=== PATIENT | female | born 1955 | race Two or more races ===

== ENCOUNTER 2016-08-31 10:22 | Day surgery (SDC) | payer OTHER ==
[2016-08-31] VITALS (8 sets, daily range): BP systolic 97–142; BP diastolic 56–77; PULSE 54–72; RESP 14–18; Ht 172.7 cm; Wt 71.7 kg
[~2016-08-31] VITALS: Ht 172.7 cm; Wt 71.7 kg
[~2016-08-31 10:22] MED LIST: CEFAZOLIN 2 GM/50 ML (PMX) 50 ML IVPB SCH; SEVOFLURANE 15 MIN ONE; SOD CHLORIDE 0.9% 1,000 ML IV SCH
[2016-08-31] MEDS ORDERED: FENTAnyl 50 MCG/ML VIAL ONE (11:59)
[2016-08-31] MEDS ORDERED: ROCURONIUM 50 MG INJ ONE (11:59)
[2016-08-31] MEDS ORDERED: PROPOFOL 20 ML ONE (11:59)
[2016-08-31] MEDS ORDERED: MIDAZOLAM 1 MG/ML 2 ML INJ ONE (11:59)
[2016-08-31] MEDS ORDERED: BUPIVACAINE 0.25% (MPF) 30 ML INJ ONE (12:28)
[2016-08-31] MEDS ORDERED: HYDROmorphONE (0.2 MG/ML) 10ML SYG IV PRN ×3 (12:30)
[2016-08-31] MEDS ORDERED: MEPERIDINE 25 MG INJ IV PRN (12:30)
[2016-08-31] MEDS ORDERED: LABETALOL HCL 20MG INJ IV PRN (12:30)
[2016-08-31] MEDS ORDERED: ONDANSETRON 4 MG INJ IV PRN (12:30)
[2016-08-31] MEDS ORDERED: DIPHENHYDRAMINE 50 MG INJ IV PRN (12:30)
[2016-08-31] MEDS ORDERED: METOCLOPRAMIDE 10 MG INJ IV PRN (12:30)
[2016-08-31] MEDS ORDERED: EPHEDrine SULFATE 50 MG/5 ML SYG IV PRN (12:30)
[2016-08-31] MEDS ORDERED: morphine (1 MG/ML) 10ML SYRINGE IV PRN ×3 (12:30)
[2016-08-31] MEDS ORDERED: hydrALAzine 20 MG INJ IV PRN (12:30)
[2016-08-31] MEDS ORDERED: ROPIVACAINE 0.2% 20 ML VIAL ONE (12:32)
[2016-08-31] MEDS ORDERED: ONDANSETRON 4 MG INJ ONE (12:45)
[2016-08-31] MEDS ORDERED: CEFAZOLIN 1 GM INJ ONE (12:45)
[2016-08-31] MEDS ORDERED: KETOROLAC 30 MG INJ ONE (12:45)
[2016-08-31] MEDS ORDERED: METOCLOPRAMIDE 10 MG INJ ONE (12:45)
[2016-08-31] MEDS ORDERED: DEXAMETHASONE 4 MG/ML 1 ML INJ ONE (12:46)
[2016-08-31] MEDS ORDERED: NEOSTIGMINE 3 MG/3 ML SYRINGE ONE (13:00)
[2016-08-31] MEDS ORDERED: GLYCOPYRROLATE 0.4 MG INJ ONE (13:00)
[2016-08-31] MEDS ORDERED: HYDROCODONE/APAP (5/325) TAB PO ONE (13:30)
--- NOTE | 2016-08-31 13:54 | OPR ---
DATE OF OPERATION: 08/31/2016 INDICATION: This is a 60-year-old female with symptomatic gallstones. She requests surgical excisi on of her gallbladder. Risks, alternatives, benefits, and personnel were discussed with patient. T he patient expressed understanding and consents to the operation. PREOPERATIVE DIAGNOSIS: Symptomatic gallstones. POSTOPERATIVE DIAGNOSIS: Symptomatic gallstones. OPERATION PERFORMED: Laparoscopic cholecystectomy. SURGEON: Sergio Hoskins MD SPECIMEN: Gallbladder. COMPLICATIONS: None. ANESTHESIA: General. PROCEDURE: The patient was taken to the OR and prepped and draped in usual sterile fashion. Surgic al timeout was performed. IV antibiotics were given. Infraumbilical transverse incision was made w ith a 15 blade. Dissection cautery was carried down to the fascia which was divided with curved May o scissors. An 0 Vicryl U-stitch was placed into the fascia. Balloon Ajay trocar was introduced. Pneumoperitoneum was established. Midepigastric 12 mm optical trocar, right upper quadrant and ri t upper flank 5 mm optical trocars were placed under direct visualization. Upon initial inspectio n, there were some adhesions to the gallbladder which were taken down bluntly. The cystic duct was identified. The critical view was established. The cystic duct was divided using a 35 mm [place] v ascular stapler. The cystic artery was divided using clips with 2 clips proximal and 1 clip distal. Additional clips were placed on the staple line for reinforcement. The gallbladder was taken off the gallbladder bed. There was good hemostasis. Gallbladder was retrieved using an EndoCatch bag. Ports were removed under direct visualization. The 0 Vicryl U-stitch was tied down. The skin was closed using skin tamara. Local anesthesia was injected. Dry dressings were applied. Dictated By: SERGIO MEZA/APOLINAR Conf#: [id number] DID#: [id number]
== END 2016-08-31 15:15 | disposition home or self-care (01) ==
LOC: SDS 10:22
PROVIDERS: ATTEND Surgery
DX: K80.20 Calculus of gallbladder without cholecystitis without obstruction (principal)
CPT/HCPCS: 47562; 88304; J0690; J1100; J1170; J1885; J2175; J2250; J2405; J2710; J2765; J2795; J3010; Z7512; Z7610